=== PATIENT | female | born 1995 | race Caucasian/White ===

== ENCOUNTER 2022-10-25 01:53 | Emergency (ER) | payer OTHER ==
[~2022-10-25] VITALS: Ht 149.9 cm; Wt 53.1 kg
[2022-10-25 01:55] VITALS: PULSE 87
[2022-10-25 02:01] VITALS: BP 134/51; RESP 18; TEMP 97.9; O2SAT 100
[2022-10-25] MEDS ORDERED: ALBU18HF2 IH (03:18)
== END 2022-10-25 03:30 | disposition home or self-care (01) ==
LOC: ER 01:53
DX: R06.00 Dyspnea, unspecified (principal); J45.909 Unspecified asthma, uncomplicated
CPT/HCPCS: 99281